=== PATIENT | female | born 2005 | race Caucasian/White ===

== ENCOUNTER 2024-04-21 01:09 | Emergency (ER) | payer MEDICAID, SELFPAY ==
[2024-04-21 01:14] VITALS: BP 137/96; PULSE 84; RESP 18; TEMP 37; O2SAT 98
--- NOTE | 2024-04-21 01:15 | DI.CT_ITS ---
Exam(s) CT ABDOMEN PELVIS W EXAM: CT ABDOMEN PELVIS W CLINICAL HISTORY: left flank pain and right sided pain, eval stone. TECHNIQUE: Imaging Protocol: Axial computed tomography images with coronal and sagittal reformatted images were created and reviewed CONTRAST MATERIAL: Intravenous: Omnipaque 350 Contrast volume:75 ml Oral: no COMPARISON: No exams were available for comparison FINDINGS: ABDOMEN and PELVIS: Lung Bases: No acute findings. Liver: Normal density. No suspicious mass. Gallbladder and biliary tract: No radiodense calculus. No wall thickening or pericholecystic fluid. No biliary dilation. Pancreas: Normal density. No abnormal calcifications or inflammatory process. No evidence of mass. Spleen: Normal. Kidneys: Normal size, contour and axis. No radiodense stones. No obstructive uropathy. No suspicious masses seen. Mild left ureteral thickening with adjacent stranding, consistent with highlighted. Adrenal glands: No masses seen. Vasculature: Abdominal aorta non-dilated. Soft tissues: Unremarkable. Bladder: Mild wall thickening. No calculi.No focal mass. Bowel: No obstruction. No bowel wall thickening. Appendix normal. Peritoneal cavity: No ascites. No focal collection. No mesenteric inflammatory response. No free air . Bones: Unremarkable for age. Reproductive organs: Unremarkable. Lymph nodes: No pathologically enlarged lymph nodes. IMPRESSION:: Mild left ureteral thickening consistent with bilat is. No obstructing stones. No vis ible renal lesions. Question of mild bladder wall thickening could indicate cystitis. RADIATION DOSE DELIVERED: 301.89mGy.cm Total DLP DATA REPOSITORY: All CT scans at this facility are submitted to the National Radiology Data Registry (NRDR) Dose Index Registry (DIR) with the [employer] (A[employer]). RADIATION OPTIMIZATION: All CT scans at this facility use at least one of these dose optimization te chniques: automated exposure control; mA and/or kV adjustment per patient size (includes targeted exa ms where dose is matched to clinical indication); or iterative reconstruction.
[2024-04-21 01:19] VITALS: BP 137/96; PULSE 84; RESP 18; TEMP 37; O2SAT 98
[2024-04-21] MEDS: Ketorolac 15 MG/ML VIAL IVP (01:36)
--- NOTE | 2024-04-21 01:38 | ED.GENADUL_ITS ---
Discharge Plan Disposition Patient Disposition: Home Condition: Good Discharge Details Clinical Impression: Pyelonephritis ED Provider: Zohaib Reyes Home Meds and New Rx's Prescriptions: New cephalexin 500 mg capsule 500 mg PO QID 14 Days Qty: 56 0RF Discharge Instructions Instructions: Urinary Tract Infection, Adult ED Additional Instructions: At this time you have notable bladder infection. You have been given a first dose of IV antibiotics, please take the Keflex as prescribed for the next 14 days. Drink plenty fluids and stay well-hydrated. Please drink cranberry concentrate during your treatment of this infection. If you notice any worsening of your symptoms, or any new symptoms such as vomiting, diarrhea, fever, chills, shortness of breath, chest pain, numbness, weakness, or fainting , please return immediately to the emergency department for reevaluation. Please follow up with your primary care provider as soon as possible for reassessment and reevaluation. As always, it was a pleasure participating in your medical care today. HPI General Date/Time Provider Initiated Documentation: 04/21/24 01:18 . HPI Narrative: This is a pleasant 19-year-old female with a past medical history of ADD, oral contraceptive use, who presents today for left-sided flank pain. Patient states that she was treated for urinary tract infection a few weeks ago, treatment was successful but she has still had some residual burning. Then arou nd 3 PM this evening she developed mild left-sided flank pain which was gradual in nature. Over the next few hours it transitioned also to include the right side. She still does have some mild urinary burning. She denies any blood. Last menstrual period was about 10 days ago. She denies any vomiting or diarrhea. She denies any chest pain or shortness of breath. No fever. She has not taken any NSAIDs. No other complaints at this time. She did apply [place] balm which did not improve the symptoms. No personal or family history of kidney stones. No prior abdominal surgeries. Related Data Home Medications ?Medication ?Instructions ?Recorded ?Confirmed cephalexin 500 mg capsule 500 mg PO QID 14 days #56 caps 04/21/24 Previous Rx's ?Medication ?Instructions ?Recorded cephalexin 500 mg capsule 500 mg PO QID 14 days #56 caps 04/21/24 Allergies Allergy/AdvReac Type Severity Reaction Status Date / Time No Known Allergies Allergy Verified 04/21/24 01:22 General Stated Complaint: FlankPain ADAMA: 3 Exam Narrative Exam Narrative: 1.Const: Well-nourished, Well-developed, appearing stated age 2.Eyes: PERRL, no conjunctival injection, and symmetrical lids. 3.ENT: Atraumatic external nose and ears. Moist MM. Neck: Symmetric, trachea midline, No thyromegaly. 4.CVS: +S1/S2, Peripheral pulses 2+ and equal in all extremities. Brisk capillary refill in all extremities. 5.RESP: Unlabored respiratory effort. Clear to auscultation bilaterally. No wheezes rales or rhonchi 6.GI: Soft, nondistended, mild left-sided abdominal tenderness on deep palpation with mild left-sided CVA tenderness. Minimal right-sided CVA tenderness. No pain at McBurney's point, negative Castano sign. Positive obturator sign on the left and positive psoas sign on the right. Negative heel strike test bilaterally. 7.MSK: Normocephalic/Atraumatic, Extremities w/o deformity or ttp No cyanosis or clubbing, Normal movement of all extremities 8.Skin: Warm, Dry. No rashes or lesions. 9.Neuro: supervisor shaving and splitting II-XII grossly intact. Sensation grossly intact, no focal neurologic deficits. 10.Psych: (AAO) x3. Appropriate mood and affect Course Vital Signs Vital signs: Vital Signs Temperature 37.0 C 04/21/24 01:14 Pulse 84 04/21/24 01:14 Respiratory Rate 18 04/21/24 01:14 Blood Pressure 137/96 H 04/21/24 01:14 Pulse Oximetry 98 04/21/24 01:14 Temperature 37.0 C 04/21/24 01:19 Temperature Source Temporal Artery Scan 04/21/24 01:19 Pulse 84 04/21/24 01:19 Respiratory Rate 18 04/21/24 01:19 Blood Pressure 137/96 H 04/21/24 01:19 Blood Pressure Position Sitting 04/21/24 01:19 Pulse Oximetry 98 04/21/24 01:19 Oxygen Delivery Method Room Air 04/21/24 01:19 Oxygen Flow Rate 0 04/21/24 01:19 Pain Level 7 04/21/24 01:36 Medical Decision Making This is a pleasant 19-year-old female with a past medical history of ADD, oral contraceptive use, who presents today for left-sided flank pain. Patient states that she was treated for urinary tract infection a few weeks ago, treatment was successful but she has still had some residual burning. Then around 3 PM this evening she developed mild left-sided flank pain which was gradual in nature. Over the next few hours it transitioned also to include the right side. She still does have some mild urinary burning. She denies any blood. Last menstrual period was about 10 days ago. She denies any vomiting or diarrhea. She denies any chest pain or shortness of breath. No fever. She has not taken any NSAIDs. No other complaints at this time. She did apply [place] balm which did not improve the symptoms. No personal or family history of kidney stones. No prior abdominal surgeries. Exam demonstrates mild left-sided abdominal tenderness on deep palpation with mild left-sided CVA tenderness. Minimal right-sided CVA tenderness. No pain at McBurney's point, negative Castano sign. Positive obturator sign on the left and positive psoas sign on the right. Negative heel strike test bilaterally. Differential includes UTI/pyelonephritis, urolithiasis, less likely diverticulitis. No pelvic tenderness to suggest ovarian pathology. No evidence of an acute surgical abdomen. Will treat with NSAIDs, evaluate further these etiologies, get a CT scan to rule out stone or diverticulitis, monitor closely and reassess. 4:26 AM Laboratory workup shows no white count or bandemia, transaminases stable, renal function normal. Lipase normal. Urinalysis shows greater than 50 WBCs with moderate leuk esterase, negative nitrates. CT scan shows no evidence of obstructive uropathy, however there is evidence of left pyelitis and bladder wall thickening which correlates well with urinary tract infection. Patient is feeling much better at this time. 2 g of ceftriaxone have been given, we will give prescription for Keflex for home. Discussed red flags which to return. Patient shows no evidence of sepsis, no signs of obstructive uropathy. No indication for inpatient admission. I have extensively reviewed the treatment plan and discharge instructions with the patient. I have addressed all patient concerns at this time. The patient was made aware of what symptoms to monitor for that would warrant a return to the emergency department. Discussed the plan with the patient, they demonstrate verbal understanding and agreement with our assessment and plan at this time. The documentation in this chart was dictated using [employer] dictation software. Please excuse any dictation errors. FINDINGS: Limitations: Mild motion artifact. Liver: Low attenuation lesions in the liver too small to accurately characterize on CT. Gallbladder and biliary ducts: No radiodense gallbladder calculi seen. Pancreas: No CT evidence for acute pancreatitis. Spleen: No splenomegaly. Adrenal glands: No mass. Kidneys and ureters: Left ureteral thickening with adjacent stranding. No hydronephrosis. Stomach and bowel: Stomach appears thickened but is incompletely distended. No intestinal obstruction is evident. Appendix: No evidence of appendicitis. Intraperitoneal space: No free air. Vasculature: No abdominal aortic aneurysm. Lymph nodes: Nonspecific mesenteric and retroperitoneal lymph nodes. Urinary bladder: Minimal bladder wall thickening. Reproductive: Septated bilateral ovarian cysts measuring approximately 2.2 cm on the right and 2.1 cm on the left. Central hypodensity in the uterus, likely secretory phase endometrium. Nabothian cyst. Bones/joints: No pertinent acute abnormality seen. Soft tissues: No pertinent acute abnormality seen. IMPRESSION: 1. No obstructive uropathy. 2. Findings consistent with left pyelitis. 3. Mild bladder wall thickening, may be due to incomplete distension and/or cystitis. 4. Gastric thickening may be due to underdistention. Gastritis not excluded. Correlate clinically. 5. Additional findings as above. Thank you for allowing us to participate in the care of your patient. Dictated and Authenticated by: Paula Vega MD 04/21/2024 3:37 AM Eastern Time ([place] & [place]) Quality:SDOH Health Related Social Needs: No Data to Display PFSH All Active Problems (Updated 04/21/24 @ 04:28 by Zohaib Reyes DO) Pyelonephritis (Acute) Social History Smoking/Tobacco Use Status: Former Tobacco Use Smoking risk assessment performed?: Yes Alcohol Intake: never Drug use: Never Substance use type: does not use Housing: other Do you feel safe at home: Yes Do you feel safe in your relationship?: Yes
[2024-04-21 01:46] LABS: Abs Immature Grans 0.02 10^3/uL (0.0-0.06); Absolute Basophil Count 0.02 10^3/uL (0.0-0.2); Absolute Eosinophil Count 0.09 10^3/uL (0.0-0.7); Absolute Lymphocyte Count 2.43 10^3/uL (1.2-3.4); Absolute Monocyte Count 0.65 10^3/uL (0.1-0.8); Absolute Neutrophil Count 4.43 10^3/uL (1.2-6.7); Basophils % 0.3 %; Eosinophils % 1.2 %; HGB 12.8 g/dL (11.2-15.7); Immature Grans % 0.3 %; Lymphocytes % 31.8 %; MCH 29.2 pg (27.0-33.0); MCHC 32.8 % (32.0-36.0); MCV 89 fL (80-95); MPV 10.4 fL (8.0-11.0); Monocytes % 8.5 %; Neutrophils % 57.9 %; Platelet Count 232 10^3/uL (130-400); RBC 4.38 10^6/uL (3.93-5.22); RDW 12.2 % (11.7-14.6); WBC 7.64 10^3/uL (4.4-10.8)
[2024-04-21 02:02] LABS: ALT 12 U/L (14-59); AST 11 U/L (15-37); Albumin 3.6 g/dL (3.4-5.0); Alkaline Phosphatase 60 U/L (46-116); Anion Gap 5.8 mmol/L (3-11); BUN 8 mg/dL (7-18); CO2 31.2 mmol/L (21.0-32.0); CREATININE 0.8 mg/dL (0.55-1.02); Calcium 9.2 mg/dL (8.5-10.1); Chloride 105 mmol/L (98-107); Estimated GFR 108.11 (mL/min/1.73m2); Glucose 101 mg/dL (74-106); Lipase 33 U/L (<78); Potassium 3.5 mmol/L (3.5-5.1); Sodium 142 mmol/L (136-145); Total Protein 7.7 g/dL (6.4-8.2)
[2024-04-21] MEDS: Omnipaque 350 MG/ML 100 ML BTL IJ (02:38)
[2024-04-21] MEDS: Normal Saline Flush 10 ML SYR IVP (02:39)
[2024-04-21] MEDS: Normal Saline - Diluent 50 ML VIAL IJ (02:39)
[2024-04-21 02:44] LABS: Bilirubin Negative (Negative); Blood Large (Negative); Clarity Cloudy (Clear); Glucose Negative (Negative); Ketones Negative (Negative); Leukocyte Esterase Moderate (Negative); Nitrite Negative (Negative); Urobilinogen 0.2 mg/dL (Up to 0.2)
[2024-04-21 02:48] LABS: Bacteria Moderate HPF (Negative); C & S Indicated? C&S Done As Ordered; Casts Negative LPF (Negative); Crystals Negative HPF (Negative); Epithelial Cells Few HPF (Negative); Mucus Moderate (Negative); WBC >50 HPF (0-5)
--- NOTE | 2024-04-21 03:37 | DI.VRAD_ITS ---
PROCEDURE INFORMATION: Exam: CT Abdomen And Pelvis With Contrast Exam date and time: 04/21/2024 2:57 AM Age: 19 years old Clinical indication: Abdominal pain and other: L flank; Localized; Patient HX: Left flank pain and right sided pain, eval stone TECHNIQUE: Imaging protocol: Computed tomography of the abdomen and pelvis with contrast. Radiation optimization: All CT scans at this facility use at least one of these dose optimization techniques: automated exposure control; mA and/or kV adjustment per patient size (includes targeted exams where dose is matched to clinical indication); or iterative reconstruction. Contrast material: OMNIPAQUE 350; Contrast volume: 75 ml; Contrast route: INTRAVENOUS (IV); COMPARISON: No relevant prior studies available. FINDINGS: Limitations: Mild motion artifact. Liver: Low attenuation lesions in the liver too small to accurately characterize on CT. Gallbladder and biliary ducts: No radiodense gallbladder calculi seen. Pancreas: No CT evidence for acute pancreatitis. Spleen: No splenomegaly. Adrenal glands: No mass. Kidneys and ureters: Left ureteral thickening with adjacent stranding. No hydronephrosis. Stomach and bowel: Stomach appears thickened but is incompletely distended. No intestinal obstruction is evident. Appendix: No evidence of appendicitis. Intraperitoneal space: No free air. Vasculature: No abdominal aortic aneurysm. Lymph nodes: Nonspecific mesenteric and retroperitoneal lymph nodes. Urinary bladder: Minimal bladder wall thickening. Reproductive: Septated bilateral ovarian cysts measuring approximately 2.2 cm on the right and 2.1 cm on the left. Central hypodensity in the uterus, likely secretory phase endometrium. Nabothian cyst. Bones/joints: No pertinent acute abnormality seen. Soft tissues: No pertinent acute abnormality seen. IMPRESSION: 1. No obstructive uropathy. 2. Findings consistent with left pyelitis. 3. Mild bladder wall thickening, may be due to incomplete distension and/or cystitis. 4. Gastric thickening may be due to underdistention. Gastritis not excluded. Correlate clinically. 5. Additional findings as above. Dictated and Authenticated by: Paula Vega MD. Ordering:JASS Penny MD
[2024-04-21] MEDS: cefTRIAXone 2 GM/50 ML BAG IVPB (03:57)
[2024-04-21 04:35] VITALS: BP 116/88; PULSE 68; RESP 18; TEMP 36.8; O2SAT 98
[2024-04-21 04:38] VITALS: BP 116/88; PULSE 68; RESP 18; TEMP 36.8; O2SAT 98
== END 2024-04-21 06:06 | disposition home or self-care (01) ==
LOC: ER 06:42
PROVIDERS: Emergency Provider Student in an Organized Health Care Education/Training Program; PCP Nurse Practitioner Family
DX: N12 Tubulo-interstitial nephritis, not specified as acute or chronic (principal); Z87.891 Personal history of nicotine dependence
CPT/HCPCS: 80053; 83690; 87077; 96365; 96375; 99285; 74177; 81003; 81015; 85025; 87086; 87186; J0696; J1885; J3490